=== PATIENT | male | born 2000 | race Caucasian/White ===

== ENCOUNTER 2025-02-09 21:37 | Emergency (ER) | payer SELFPAY ==
[2025-02-09 22:22] VITALS: BP 135/85; PULSE 80; RESP 18; TEMP 36.6; O2SAT 99; BMI 18.4
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
--- NOTE | 2025-02-09 22:49 | PC.NURSE ---
pt being transported to CT
[2025-02-09 23:58] VITALS: BP 118/90; PULSE 80; RESP 18; TEMP 36.9; O2SAT 100
== END 2025-02-10 | disposition home or self-care (01) ==
PROVIDERS: Emergency Provider Emergency Medicine
DX: M25.521 Pain in right elbow (principal); M54.2 Cervicalgia; M54.50 Low back pain, unspecified; M54.6 Pain in thoracic spine; V87.7XXA Person injured in collision between other specified motor vehicles (traffic), initial encounter
CPT/HCPCS: 70450; 72125; 72131; 73080; 73090; 73110; 99285